=== PATIENT | female | born 1980 | race Caucasian/White ===

== ENCOUNTER 2016-08-20 15:45 | Emergency (ER) | payer OTHER ==
[2016-08-20 15:58] VITALS: PULSE 80; TEMP 98.8
--- NOTE | 2016-08-20 16:38 | PDOC ---
History of Present Illness <Shawanda Smiley - Last Filed: 08/20/16 23:12> <Karyn Jeffries - Last Filed: 08/20/16 23:22> - General Chief Complaint: Chest Pain Stated Complaint: SOB, CHEST PAIN Time Seen by Provider: 08/20/16 16:23 - History of Present Illness Initial Comments: 08/20/16 19:16 The patient is a 35 year old female, with no significant past medical history, who presents to the emergency department with midsternal chest pain since yesterday. She states the pain has been constant pressure pain, and exacerbated with deep inspiration. She denies any alleviating factors of pain. She denies radiation of pain. She reports one similar episode a year ago, but denies having a cardiac workup. She does, however, report having a normal ecg at the time. She denies shortness of breath, headache and dizziness. She denies fever, chills , nausea, vomit, diarrhea and constipation. She denies dysuria, frequency, urgency and hematuria. Allergies: NKDA Social history: denies toxic habits (Shawanda Smiley) Past History <Shawanda Smiley - Last Filed: 08/20/16 23:12> - Psycho/Social/Smoking Cessation Hx Suicidal Ideation: No Smoking History: Former smoker Have you smoked in the past 12 months: No If you are a former smoker, when did you quit?: 10 years ago Information on smoking cessation initiated: No <Karyn Jeffries - Last Filed: 08/20/16 23:22> - Past Medical History Allergies/Adverse Reactions: Allergies Allergy/AdvReac Type Severity Reaction Status Date / Time No Known Allergies Allergy Verified 08/20/16 15:55 Home Medications: Ambulatory Orders NK [No Known Home Medication] 08/20/16 Review of Systems - Review of Systems Able to Perform ROS?: Yes <Shawanda Smiley - Last Filed: 08/20/16 23:12> <Karyn Jeffries - Last Filed: 08/20/16 23:22> - Review of Systems Comments:: 08/20/16 19:16 CONSTITUTIONAL: Absent: fever, chills, diaphoresis, generalized weakness, malaise, loss of appetite HEENT: Absent: rhinorrhea, nasal congestion, throat pain, throat swelling, difficulty swallowing, mouth swelling, ear pain, eye pain, visual Changes CARDIOVASCULAR: (+) chest pain, Absent: syncope, palpitations, irregular heart rate, lightheadedness, peripheral edema RESPIRATORY: Absent: cough, shortness of breath, dyspnea with exertion, orthopnea, wheezing, stridor, hemoptysis GASTROINTESTINAL: Absent: abdominal pain, abdominal distension, nausea, vomiting, diarrhea, constipation, melena, hematochezia GENITOURINARY: Absent: dysuria, frequency, urgency, hesitancy, hematuria, flank pain, genital pain MUSCULOSKELETAL: Absent: myalgia, arthralgia, joint swelling SKIN: Absent: rash, itching, pallor HEMATOLOGIC/IMMUNOLOGIC: Absent: easy bleeding, easy bruising, lymphadenopathy, frequent infections ENDOCRINE: Absent: unexplained weight gain, unexplained weight loss, heat intolerance, cold intolerance NEUROLOGIC: Absent: headache, focal weakness or paresthesias, dizziness, unsteady gait, seizure, mental status changes, bladder or bowel incontinence PSYCHIATRIC: Absent: anxiety, depression, suicidal or homicidal ideation, hallucinations. ( Shawanda Smiley) *Physical Exam <Shawanda Smiley - Last Filed: 08/20/16 23:12> <Karyn Jeffries - Last Filed: 08/20/16 23:22> - Vital Signs Last Vital Signs Temp Pulse Resp BP Pulse Ox 98.8 F 80 16 130/81 100 08/20/16 15:55 08/20/16 18:05 08/20/16 18:05 08/20/16 18:05 08/20/16 18:05 - Physical Exam Comments: 08/20/16 19:16 GENERAL: Well developed, well nourished. Awake and alert. No acute distress. HEENT: Normocephalic, atraumatic. PERRLA, EOMI. No conjunctival pallor. Sclera are non- icteric. Moist mucous membranes. Oropharynx is clear. NECK: Supple. Full ROM. No JVD. Carotid pulses 2+ and symmetric, without bruits. No thyromegaly. No lymphadenopathy. CARDIOVASCULAR: Regular rate and rhythm. No murmurs, rubs, or gallops. Distal pulses are 2+ and symmetric. PULMONARY: No evidence of respiratory distress. Lungs clear to auscultation bilaterally. No wheezing, rales or rhonchi. ABDOMINAL: Soft. Non-tender. Non-distended. No rebound or guarding. No organomegaly. Normoactive bowel sounds. MUSCULOSKELETAL Normal range of motion at all joints. No bony deformities or tenderness. No CVA tenderness. EXTREMITIES: No cyanosis. No clubbing. No edema. No calf tenderness. SKIN: Warm and dry. Normal capillary refill. No rashes. No jaundice. NEUROLOGICAL: Alert, awake, appropriate. Cranial nerves 2-12 intact. Normoreflexic in the upper and lower extremities. Normal speech. Toes are down-going bilaterally. Gait is normal without ataxia. PSYCHIATRIC: Cooperative. Good eye contact. Appropriate mood and affect. (Shawanda Smiley) Heart Score/ECG Review <Shawanda Smiley - Last Filed: 08/20/16 23:12> <Karyn Jeffries - Last Filed: 08/20/16 23:22> - ECG Intrepretation Comment:: 08/20/16 19:17 EKG was read by Dr. Jeffries at 16:06 Impression: Normal Sinus rhythm (Shawanda Smiley) ED Treatment Course - LABORATORY CBC & Chemistry Diagram: 08/20/16 15:32 08/20/16 15:32 <Shawanda Smiley - Last Filed: 08/20/16 23:12> - LABORATORY CBC & Chemistry Diagram: 08/20/16 15:32 08/20/16 15:32 <Karyn Jeffries - Last Filed: 08/20/16 23:22> - ADDITIONAL ORDERS Additional order review: Laboratory Results 08/20/16 08/20/16 15:32 15:32 Sodium 139 Potassium 3.6 Chloride 103 Carbon Dioxide 27 Anion Gap 9 BUN 9 Creatinine 0.7 Creat Clearance w eGFR > 60 Random Glucose 82 Calcium 8.5 Total Bilirubin 0.3 AST 27 ALT 21 Alkaline Phosphatase 95 Creatine Kinase 148 Troponin I < 0.02 Total Protein 8.1 Albumin 4.0 Serum , Qual Negative 08/20/16 15:32 RBC 4.22 MCV 85.1 MCHC 33.5 RDW 13.5 MPV 9.0 Neutrophils % 68.8 Lymphocytes % 23.5 Monocytes % 6.5 Eosinophils % 0.7 Basophils % 0.5 - RADIOLOGY Radiology Studies Ordered: Category Date Time Status CHEST CT WITH CONTRAST [CT] Stat CT Scan 08/20/16 20:01 Completed CHEST PA & LAT [RAD] Stat Radiology 08/20/16 19:22 Taken Radiograph Interpretation: 08/20/16 22:[address] was read by Dr. Elias at 21:29 Impression: a 5.9 x 5.7 cm anterior mediastinal mass lesion is noted. The radiological differential diagnosis would principally include etiologies such as thymoma and lymphoma. (Shawanda Smiley) - Medications Given in the ED: ED Medications Discontinued Medications Generic Name Dose Route Start Last Admin Trade Name Freq PRN Reason Stop Dose Admin Aspirin 81 mg 08/20/16 17:38 08/20/16 18:41 Asa - PO 08/20/16 17:39 81 mg ONCE ONE Administration Ibuprofen 600 mg 08/20/16 19:10 08/20/16 20:07 Motrin - PO 08/20/16 19:11 600 mg ONCE ONE Administration *DC/Admit/Observation/Transfer <Shawanda Smiley - Last Filed: 08/20/16 23:12> <Karyn Jeffries - Last Filed: 08/20/16 23:22> Diagnosis at time of Disposition: Anterior mediastinal tumor - Discharge Dispostion Disposition: HOME Condition at time of disposition: Stable - Referrals Referrals: Hoa Heath MD [Primary Care Provider] - Lachelle Leiva MD [Staff Physician] - - Patient Instructions Printed Discharge Instructions: DI for Atypical Chest Pain Additional Instructions: The CT SCAN of your chest shows an anterior mediastinal mass. You need to follow up with a physician for further care. - Attestations Scribe Attestion: 08/20/16 19:17 Documentation prepared by Shawanda Smiley, acting as medical clinic manager for Karyn Jeffries MD (Shawanda Smiley)
[2016-08-20] MEDS ORDERED: ASPIRIN 81 MG CHEWABLE TABLETS PO ONE (17:38)
[2016-08-20 18:13] LABS: BASOPHIL 0.5 % (0-2.0); EOSINOPHIL 0.7 % (0-4.5); MCH 28.5 pg (25.7-33.7); MCHC 33.5 g/dl (32.0-36.0); MEAN CELL VOLUME 85.1 fl (80-96); NEUTROPHILS 68.8 % (42.8-82.8); PLATELET COUNT 211 K/MM3 (134-434); RDW 13.5 % (11.6-15.6)
[2016-08-20 18:36] LABS: ANION GAP 9 (8-16); BILIRUBIN,TOTAL 0.3 mg/dL (0.2-1.0); CALCIUM 8.5 mg/dL (8.5-10.1); CO2 27 mmol/L (21-32); CREATININE 0.7 mg/dL (0.55-1.02); GLUCOSE,RANDOM 82 mg/dL (74-106); SGOT/AST 27 U/L (15-37); SGPT/ALT 21 U/L (12-78); TOT PROT 8.1 g/dl (6.4-8.2)
[2016-08-20 18:38] LABS: ALK PHOS 95 U/L (45-117); TROPONIN I < 0.02 ng/ml (0.00-0.05)
[2016-08-20] MEDS ORDERED: ASPIRIN 81 MG CHEWABLE TABLETS ONE (18:39)
[2016-08-20 19:07] VITALS: BP 130/81
[2016-08-20] MEDS ORDERED: IBUPROFEN 600 MG TABLET (FP) PO ONE ×2 (19:10→20:02)
--- NOTE | 2016-08-21 17:05 | EKG ---
Test Reason : Blood Pressure : / mmHG Vent. Rate : 083 BPM Atrial Rate : 083 BPM P-R Int : 168 ms QRS Dur : 080 ms QT Int : 362 ms P-R-T Axes : 052 -18 042 degrees QTc Int : 425 ms NORMAL SINUS RHYTHM NORMAL ECG NO PREVIOUS ECGS AVAILABLE Confirmed by ARJUN GAMBOA MD ([id number]) on 08/21/2016 5:04:56 PM Referred By: Confirmed By:ARJUN GAMBOA MD
== END 2016-08-20 23:51 | disposition home or self-care (01) ==
LOC: JER 15:45
DX: D49.89 Neoplasm of unspecified behavior of other specified sites (principal)
CPT/HCPCS: 36415; 71020-TC; 71260-TC; 80053; 82550; 84484; 84703; 85025; 93005; 93010; 99283-25